=== PATIENT | female | born 1935 | race Two or more races ===

== ENCOUNTER 2017-03-23 10:59 | Inpatient (IN) | payer OTHER ==
[~2017-03-23] VITALS: Ht 165.1 cm; Wt 49.2 kg
[2017-03-23 12:09] LABS: BASE EXCESS 7.3 mEq/L (-3 to +3); CARBOXY HGB 5.8 % (0-5); COMMENTS - BLOOD GASES C+A+; DEVICE NC; METHEMOGLOBIN 2.1 % (0-1.5); O2 FLOW 3 L/MIN; PCO2 62 mm Hg (35-45); PO2 99 mm Hg (80-100); SITE LR; TOTAL RESP RATE 18 resp/min; pH 7.36 (7.35-7.45)
[2017-03-23 13:17] LABS: EOSINOPHIL (%) 0 % (0-5); HEMATOCRIT 49.5 % (36.0-46.0); IMMATURE GRANULOCYTE (%) 0.6 % (0.0-0.7); IMMATURE GRANULOCYTE COUNT 0.1 K/uL; INSTRUMENT ABS NEUTROPHIL CT 10.2 K/uL; LYMPHOCYTE COUNT 0.7 K/uL (1.0-2.8); MCH 28.4 PG (29.0-34.0); MCHC 29.3 G/DL (30.0-36.0); MCV 96.9 FL (83-99); MEAN PLAT.VOLUME 10.5 uM^3 (9.5-12.4); MONOCYTE (%) 7.6 % (3-12); MONOCYTE COUNT 0.9 K/uL (0-0.8); NEUTROPHIL (%) 85.5 % (45-76); NEUTROPHIL COUNT 10.2 K/uL (1.8-6.4); PLATELET COUNT 103 K/uL (156-360); RBC DIS.WIDTH-CV 14.9 % (11.8-14.6); RBC DIS.WIDTH-SD 53.3 % (39-53); RED BLOOD COUNT 5.11 M/uL (3.80-5.20); WHITE BLOOD COUNT 11.9 K/uL (4.1-10.2)
[2017-03-23 13:27] LABS: CHLORIDE 101 mEq/L (99-109); SODIUM 140 mEq/L (136-147)
[2017-03-23 13:28] LABS: GLUCOSE 109 mg/dL (70-99)
[2017-03-23 13:30] LABS: ANION GAP 8 MEQ/L (2-14)
[2017-03-23 13:32] LABS: GFR ESTIMATE (CALCULATED) 56 mL/min/
[2017-03-23 13:33] LABS: UREA NITROGEN (BUN) 29 mg/dL (9-23)
[2017-03-23 13:59] LABS: TROP-I INTERPRETATION NEGATIVE; TROPONIN-I 0.07 ng/mL (0.0-0.30)
[2017-03-23 14:48] LABS: ADD MIUA? YES; BILIRUBIN NEGATIVE; BLOOD LARGE; COLOR BROWN ((YELLOW)); GLUCOSE (STRIP) NEGATIVE; KETONES NEGATIVE; LEUKOCYTES SMALL; NITRITE NEGATIVE; PROTEIN (STRIP) 300; SPECIFIC GRAVITY 1.023 (1.000-1.030); UROBILINOGEN 0.2 MG/DL (0.2-1.0)
[2017-03-23 14:49] LABS: RED BLOOD CELLS TNTC /HPF (0-5)
[2017-03-23 19:40] VITALS: BP 138/72
[2017-03-23 20:24] LABS: TROP-I INTERPRETATION NEGATIVE; TROPONIN-I 0.07 ng/mL (0.0-0.30)
[2017-03-23 21:40] LABS: D-DIMER ELISA 2.87 mg/L FEU (< 0.57); INTER. NORMALIZED RATIO 1.2; PROTHROMBIN TIME 12.3 (9.2-11.2); PTT 27.1 (25-32)
[2017-03-23 23:58] VITALS: BP 126/92
[2017-03-24 03:30] LABS: HEMATOCRIT 49.2 % (36.0-46.0); MCH 28.5 PG (29.0-34.0); MCHC 29.5 G/DL (30.0-36.0); MCV 96.9 FL (83-99); MEAN PLAT.VOLUME 11.1 uM^3 (9.5-12.4); PLATELET COUNT 95 K/uL (156-360); RBC DIS.WIDTH-CV 14.8 % (11.8-14.6); RBC DIS.WIDTH-SD 53.4 % (39-53); RED BLOOD COUNT 5.08 M/uL (3.80-5.20); WHITE BLOOD COUNT 10.6 K/uL (4.1-10.2)
[2017-03-24 03:43] LABS: CHLORIDE 101 mEq/L (99-109); POTASSIUM 4.3 mEq/L (3.7-5.4); SODIUM 141 mEq/L (136-147)
[2017-03-24 03:44] LABS: GLUCOSE 132 mg/dL (70-99)
[2017-03-24 03:46] LABS: ANION GAP 8 MEQ/L (2-14)
[2017-03-24 03:48] LABS: GFR ESTIMATE (CALCULATED) > 59 mL/min/
[2017-03-24 03:49] LABS: UREA NITROGEN (BUN) 28 mg/dL (9-23)
[2017-03-24 03:53] LABS: TROP-I INTERPRETATION NEGATIVE
[2017-03-24 04:13] VITALS: BP 134/62
[2017-03-24 08:20] VITALS: BP 146/72
[2017-03-24 11:54] VITALS: BP 157/68
[2017-03-24 16:11] VITALS: BP 123/67
[2017-03-24 19:52] VITALS: BP 115/55
[2017-03-24 23:41] VITALS: BP 125/56
[2017-03-25 05:05] VITALS: BP 116/56
[2017-03-25 07:40] VITALS: BP 101/56
[2017-03-25 08:52] LABS: TROP-I INTERPRETATION NEGATIVE; TROPONIN-I 0.05 ng/mL (0.0-0.30)
[2017-03-25 16:31] VITALS: BP 106/58
[2017-03-25 19:34] VITALS: BP 114/59; BP 130/57
[2017-03-25 23:42] VITALS: BP 110/63
[2017-03-26 03:26] VITALS: BP 104/55
[2017-03-26 07:26] VITALS: BP 145/68
[2017-03-26 11:05] VITALS: BP 134/63
[2017-03-26 11:05] LABS: HEMATOCRIT 46.9 % (36.0-46.0); MCH 28.9 PG (29.0-34.0); MCHC 29.4 G/DL (30.0-36.0); MCV 98.3 FL (83-99); PLATELET COUNT 113 K/uL (156-360); RBC DIS.WIDTH-CV 14.6 % (11.8-14.6); RBC DIS.WIDTH-SD 53.1 % (39-53); RED BLOOD COUNT 4.77 M/uL (3.80-5.20); WHITE BLOOD COUNT 8.8 K/uL (4.1-10.2)
[2017-03-26 11:22] LABS: ANION GAP 9 MEQ/L (2-14); CHLORIDE 96 MEQ/L (99-109); GFR ESTIMATE (CALCULATED) 38 mL/min/; GLUCOSE 155 mg/dL (70-99); POTASSIUM 4.5 MEQ/L (3.7-5.4); SAMPLE HEMOLYSIS CHECK 0; SAMPLE ICTERIC CHECK 0; SAMPLE LIPEMIA CHECK 0; SODIUM 141 MEQ/L (136-147); UREA NITROGEN (BUN) 42 mg/dL (9-23)
[2017-03-26 15:41] VITALS: BP 137/72
[2017-03-26 20:00] VITALS: BP 142/69
[2017-03-27] VITALS: BP 138/73
[2017-03-27 03:54] VITALS: BP 122/63
[2017-03-27 07:26] VITALS: BP 171/72
[2017-03-27 07:30] LABS: HEMATOCRIT 46.6 % (36.0-46.0); MCH 28.6 PG (29.0-34.0); MCHC 29.6 G/DL (30.0-36.0); MCV 96.5 FL (83-99); MEAN PLAT.VOLUME 11.2 uM^3 (9.5-12.4); PLATELET COUNT 107 K/uL (156-360); RBC DIS.WIDTH-CV 14.1 % (11.8-14.6); RBC DIS.WIDTH-SD 50.4 % (39-53); RED BLOOD COUNT 4.83 M/uL (3.80-5.20); WHITE BLOOD COUNT 9.6 K/uL (4.1-10.2)
[2017-03-27 08:00] LABS: ANION GAP 4 MEQ/L (2-14); CHLORIDE 96 MEQ/L (99-109); GFR ESTIMATE (CALCULATED) > 59 mL/min/; POTASSIUM 4.4 MEQ/L (3.7-5.4); SAMPLE HEMOLYSIS CHECK 0; SAMPLE ICTERIC CHECK 0; SAMPLE LIPEMIA CHECK 0; SODIUM 140 MEQ/L (136-147); UREA NITROGEN (BUN) 40 mg/dL (9-23)
[2017-03-27 08:01] LABS: GLUCOSE 92 mg/dL (70-99)
[2017-03-27 11:28] VITALS: BP 169/73
[2017-03-27 15:59] VITALS: BP 162/75
[2017-03-27 20:00] VITALS: BP 136/66
[2017-03-28] VITALS (7 sets, daily range): BP systolic 135–196; BP diastolic 68–88
[2017-03-28 06:43] LABS: HEMATOCRIT 46.5 % (36.0-46.0); MCH 28.8 PG (29.0-34.0); MCHC 29.2 G/DL (30.0-36.0); MCV 98.3 FL (83-99); MEAN PLAT.VOLUME 10.5 uM^3 (9.5-12.4); PLATELET COUNT 102 K/uL (156-360); RBC DIS.WIDTH-SD 51.4 % (39-53); RED BLOOD COUNT 4.73 M/uL (3.80-5.20); WHITE BLOOD COUNT 9.4 K/uL (4.1-10.2)
[2017-03-28 07:07] LABS: ANION GAP ND MEQ/L (2-14); CHLORIDE 94 MEQ/L (99-109); GFR ESTIMATE (CALCULATED) > 59 mL/min/; GLUCOSE 73 mg/dL (70-99); POTASSIUM 4.4 MEQ/L (3.7-5.4); SAMPLE HEMOLYSIS CHECK 0; SAMPLE ICTERIC CHECK 0; SAMPLE LIPEMIA CHECK 0; SODIUM 140 MEQ/L (136-147); UREA NITROGEN (BUN) 37 mg/dL (9-23)
[2017-03-28 07:27] LABS: CARBON DIOXIDE (BICARBONATE) > 40.0 MEQ/L (20-31)
[2017-03-28 08:00] LABS: BASE EXCESS 15.8 mEq/L (-3 to +3); CARBOXY HGB 2.9 % (0-5); METHEMOGLOBIN 2.3 % (0-1.5); pH 7.39 (7.35-7.45)
[2017-03-28 08:01] LABS: BICARBONATE 44.8 mEq/L (22-26); COMMENTS - BLOOD GASES NEG A+C+; DEVICE NC; O2 FLOW 2 L/MIN; PCO2 74 mm Hg (35-45); PO2 64 mm Hg (80-100); SITE LR; TOTAL RESP RATE 15 resp/min
[2017-03-28 13:35] LABS: BASE EXCESS 12.4 mEq/L (-3 to +3); BICARBONATE 42.1 mEq/L (22-26); CARBOXY HGB 2.9 % (0-5); COMMENTS - BLOOD GASES NEG A+C+; DEVICE NC; METHEMOGLOBIN 2.3 % (0-1.5); O2 FLOW 2 L/MIN; PCO2 78 mm Hg (35-45); PO2 57 mm Hg (80-100); SITE LR; TOTAL RESP RATE 12 resp/min; pH 7.34 (7.35-7.45)
[2017-03-29 03:40] VITALS: BP 161/74
[2017-03-29 07:35] VITALS: BP 155/78
[2017-03-29 07:49] LABS: ANION GAP 7 MEQ/L (2-14); CHLORIDE 90 MEQ/L (99-109); GFR ESTIMATE (CALCULATED) > 59 mL/min/; POTASSIUM 4.9 MEQ/L (3.7-5.4); SAMPLE HEMOLYSIS CHECK 0; SAMPLE ICTERIC CHECK 0; SAMPLE LIPEMIA CHECK 0; SODIUM 135 MEQ/L (136-147); UREA NITROGEN (BUN) 31 mg/dL (9-23)
[2017-03-29 07:50] LABS: GLUCOSE 111 mg/dL (70-99)
[2017-03-29 08:49] LABS: BASE EXCESS 16.7 mEq/L (-3 to +3); BICARBONATE 45.4 mEq/L (22-26); CARBOXY HGB 2.8 % (0-5); METHEMOGLOBIN 2.1 % (0-1.5); PCO2 70 mm Hg (35-45); PO2 67 mm Hg (80-100); pH 7.42 (7.35-7.45)
[2017-03-29 08:50] LABS: COMMENTS - BLOOD GASES NEG A+C+; DEVICE NC; O2 FLOW 3 L/MIN; SITE LR; TOTAL RESP RATE 15 resp/min
[2017-03-29 11:08] VITALS: BP 173/71
[2017-03-29 16:00] VITALS: BP 160/73
[2017-03-29 19:37] VITALS: BP 143/71
[2017-03-29 23:38] VITALS: BP 144/67
[2017-03-30 03:32] VITALS: BP 162/72
[2017-03-30 07:49] VITALS: BP 134/63
[2017-03-30 08:23] LABS: HEMATOCRIT 47.1 % (36.0-46.0); MCH 29.3 PG (29.0-34.0); MCHC 30.8 G/DL (30.0-36.0); MCV 95.2 FL (83-99); MEAN PLAT.VOLUME 10.5 uM^3 (9.5-12.4); PLATELET COUNT 130 K/uL (156-360); RBC DIS.WIDTH-CV 13.2 % (11.8-14.6); RBC DIS.WIDTH-SD 46.5 % (39-53); RED BLOOD COUNT 4.95 M/uL (3.80-5.20); WHITE BLOOD COUNT 11.3 K/uL (4.1-10.2)
[2017-03-30 09:05] LABS: ANION GAP ND MEQ/L (2-14); CHLORIDE 88 MEQ/L (99-109); GFR ESTIMATE (CALCULATED) > 59 mL/min/; GLUCOSE 84 mg/dL (70-99); POTASSIUM 4.9 MEQ/L (3.7-5.4); SAMPLE HEMOLYSIS CHECK 0; SAMPLE ICTERIC CHECK 0; SAMPLE LIPEMIA CHECK 0; SODIUM 136 MEQ/L (136-147); UREA NITROGEN (BUN) 27 mg/dL (9-23)
[2017-03-30 09:08] LABS: CARBON DIOXIDE (BICARBONATE) > 40.0 MEQ/L (20-31)
[2017-03-30] MEDS ORDERED: ELIQUIS5 MG PO ×3 (10:20→11:09)
[2017-03-30] MEDS ORDERED: DUONEB 2.5-0.5 M3 ML AEROSOL (10:20)
[2017-03-30] MEDS ORDERED: CARVEDILOL6.25 MG PO (10:20)
[2017-03-30] MEDS ORDERED: HYDROCHLOROTH12.5 M3 PO (10:21)
[2017-03-30] MEDS ORDERED: VALSARTAN160 MG PO (10:21)
[2017-03-30] MEDS ORDERED: MEDROL DOSEPAK4 MG PO (10:21)
[2017-03-30] MEDS ORDERED: ADVAIR HFA120 INHALA IH (10:21)
[2017-03-30] MEDS ORDERED: BISACODYL5 MG PO (10:21)
[2017-03-30] MEDS ORDERED: ANCEF,KEFZOL1 GM IM (10:24)
[2017-03-30 10:54] VITALS: BP 140/65
== END 2017-03-30 13:05 | DRG 175 ==
LOC: EME 10:59 → 5SOUTH 15:57 → EDOF 15:57 → 5SOUTH 17:42 → 2EAST 03-29 21:46
PROVIDERS: Emergency Medicine; Hospitalist; Internal Medicine; Internal Medicine Cardiovascular Disease; Internal Medicine Pulmonary Disease; Physician Assistant; Physician Assistant Medical
PROC: 0HDNXZZ Extraction of Left Foot Skin, External Approach (ICD-10-PCS; principal; 2017-03-28)
DX: I26.99 Other pulmonary embolism without acute cor pulmonale (principal); J96.01 Acute respiratory failure with hypoxia; J44.1 Chronic obstructive pulmonary disease with (acute) exacerbation; I50.41 Acute combined systolic (congestive) and diastolic (congestive) heart failure; R78.81 Bacteremia; N17.9 Acute kidney failure, unspecified; L03.116 Cellulitis of left lower limb; N39.0 Urinary tract infection, site not specified; R31.29 Other microscopic hematuria; S91.302A Unspecified open wound, left foot, initial encounter; E87.2 Acidosis; I25.10 Atherosclerotic heart disease of native coronary artery without angina pectoris; D69.6 Thrombocytopenia, unspecified; I27.2 Other secondary pulmonary hypertension; I07.1 Rheumatic tricuspid insufficiency; I27.81 Cor pulmonale (chronic); I49.3 Ventricular premature depolarization; N28.9 Disorder of kidney and ureter, unspecified; I70.203 Unspecified atherosclerosis of native arteries of extremities, bilateral legs; I11.0 Hypertensive heart disease with heart failure; R32 Unspecified urinary incontinence; A49.01 Methicillin susceptible Staphylococcus aureus infection, unspecified site; F17.210 Nicotine dependence, cigarettes, uncomplicated
CPT/HCPCS: 36600; 71010; 71275; 74176; 74183; 80048; 81003; 82803; 83605; 83880; 84484; 85025; 85027; 85379; 85610; 85730; 87040; 87070; 87075; 87077; 87186; 87205; 87801; 93005; 93306; 93925; 93970; 93971; 94640; 94640 76; 94644; 94799; 99202; 99281; 99285; J0295; J0690; J0696; J1644; J1650; J1940; J2060; J2920; J2930; J3370; J7030; J7050; J7512

== ENCOUNTER 2017-04-20 11:57 | Emergency (ER) | payer OTHER ==
[~2017-04-20] VITALS: Ht 157.5 cm; Wt 43.4 kg
[~2017-04-20 11:57] MED LIST: ADVAIR HFA120 INHALA IH; ANCEF,KEFZOL1 GM IM; BISACODYL5 MG PO; CARVEDILOL6.25 MG PO; DUONEB 2.5-0.5 M3 ML AEROSOL; ELIQUIS5 MG PO; HYDROCHLOROTH12.5 M3 PO; MEDROL DOSEPAK4 MG PO; VALSARTAN160 MG PO
[2017-04-20 13:45] LABS: EOSINOPHIL (%) 1.9 % (0-5); EOSINOPHIL COUNT 0.1 K/uL (0-0.3); HEMATOCRIT 35.3 % (36.0-46.0); IMMATURE GRANULOCYTE (%) 0.7 % (0.0-0.7); IMMATURE GRANULOCYTE COUNT 0.1 K/uL; LYMPHOCYTE COUNT 0.9 K/uL (1.0-2.8); MCH 28.4 PG (29.0-34.0); MCHC 29.7 G/DL (30.0-36.0); MCV 95.4 FL (83-99); MEAN PLAT.VOLUME 9.8 uM^3 (9.5-12.4); MONOCYTE (%) 12.5 % (3-12); MONOCYTE COUNT 0.9 K/uL (0-0.8); NEUTROPHIL (%) 71.5 % (45-76); PLATELET COUNT 177 K/uL (156-360); RBC DIS.WIDTH-CV 13.2 % (11.8-14.6); RBC DIS.WIDTH-SD 46.4 % (39-53); WHITE BLOOD COUNT 6.9 K/uL (4.1-10.2)
[2017-04-20 13:52] LABS: CHLORIDE 93 mEq/L (99-109); SODIUM 131 mEq/L (136-147)
[2017-04-20 13:53] LABS: PROTHROMBIN TIME 10.2 (9.2-11.2); PTT 20.9 (25-32)
[2017-04-20 13:54] LABS: GLUCOSE 70 mg/dL (70-99)
[2017-04-20 13:55] LABS: ANION GAP 5 MEQ/L (2-14)
[2017-04-20 13:56] LABS: TOTAL BILIRUBIN 0.3 mg/dL (0.0-1.0)
[2017-04-20 13:58] LABS: ALKALINE PHOSPHATASE 84 IU/L (3-129); GFR ESTIMATE (CALCULATED) > 59 mL/min/
[2017-04-20 14:00] LABS: UREA NITROGEN (BUN) 35 mg/dL (9-23)
[2017-04-20 14:04] LABS: TROP-I INTERPRETATION NEGATIVE; TROPONIN-I 0.02 ng/mL (0.0-0.30)
[2017-04-20 14:36] LABS: ADD MIUA? NO; BILIRUBIN NEGATIVE; BLOOD NEGATIVE; COLOR YELLOW ((YELLOW)); GLUCOSE (STRIP) NEGATIVE; KETONES NEGATIVE; LEUKOCYTES NEGATIVE; NITRITE NEGATIVE; PROTEIN (STRIP) NEGATIVE; SPECIFIC GRAVITY 1.004 (1.000-1.030); UCUL ADDED? NO; UROBILINOGEN 0.2 MG/DL (0.2-1.0)
[2017-04-20 16:48] VITALS: BP 125/60
== END 2017-04-20 16:51 | disposition home or self-care (01) ==
LOC: EME → EDBD 11:57 → EME 16:51
PROVIDERS: Emergency Medicine
DX: R53.1 Weakness (principal); I95.9 Hypotension, unspecified; I48.91 Unspecified atrial fibrillation; Z87.440 Personal history of urinary (tract) infections; F17.200 Nicotine dependence, unspecified, uncomplicated
CPT/HCPCS: 71010; 80053; 81003; 83605; 84484; 85025; 85610; 85730; 87040; 93005; 99281; 99285

== ENCOUNTER 2017-06-04 12:13 | Inpatient (IN) | payer OTHER ==
[~2017-06-04] VITALS: Ht 167.6 cm; Wt 42.2 kg
[2017-06-04 13:18] LABS: EOSINOPHIL (%) 2.2 % (0-5); EOSINOPHIL COUNT 0.2 K/uL (0-0.3); HEMATOCRIT 33.4 % (36.0-46.0); IMMATURE GRANULOCYTE (%) 0.4 % (0.0-0.7); INSTRUMENT ABS NEUTROPHIL CT 6.7 K/uL; LYMPHOCYTE COUNT 0.7 K/uL (1.0-2.8); MCH 28.5 PG (29.0-34.0); MCHC 31.7 G/DL (30.0-36.0); MCV 89.8 FL (83-99); MEAN PLAT.VOLUME 8.3 uM^3 (9.5-12.4); MONOCYTE (%) 13.7 % (3-12); MONOCYTE COUNT 1.2 K/uL (0-0.8); NEUTROPHIL (%) 75.3 % (45-76); NEUTROPHIL COUNT 6.7 K/uL (1.8-6.4); PLATELET COUNT 274 K/uL (156-360); RBC DIS.WIDTH-CV 13.1 % (11.8-14.6); RBC DIS.WIDTH-SD 43.2 % (39-53); RED BLOOD COUNT 3.72 M/uL (3.80-5.20); WHITE BLOOD COUNT 8.9 K/uL (4.1-10.2)
[2017-06-04 13:26] LABS: PROTHROMBIN TIME 11.3 SEC (10.2-12.9)
[2017-06-04 13:29] LABS: PTT 29.5 SEC (25-37)
[2017-06-04 13:30] LABS: CHLORIDE 83 mEq/L (99-109); POTASSIUM 4.4 mEq/L (3.7-5.4); SODIUM 124 mEq/L (136-147)
[2017-06-04 13:32] LABS: GLUCOSE 116 mg/dL (70-99)
[2017-06-04 13:33] LABS: ANION GAP 8 MEQ/L (2-14)
[2017-06-04 13:36] LABS: GFR ESTIMATE (CALCULATED) > 59 mL/min/
[2017-06-04 13:37] LABS: UREA NITROGEN (BUN) 12 mg/dL (9-23)
[2017-06-04 13:41] LABS: TROP-I INTERPRETATION NEGATIVE; TROPONIN-I 0.11 ng/mL (0.0-0.30)
[2017-06-04] MEDS ORDERED: ELIQUIS5 MG PO (15:21)
[2017-06-04] MEDS ORDERED: DIOVAN80 MG PO (15:22)
[2017-06-04] MEDS ORDERED: COREG6.25 M1 PO (15:22)
[2017-06-04] MEDS ORDERED: ADVAIR 250/501 DISK IH (15:23)
[2017-06-04] MEDS ORDERED: TYLENOL EXTRA500 MG PO (15:23)
[2017-06-04] MEDS ORDERED: TRAMADOL HCL50 MG PO (15:23)
[2017-06-04] MEDS ORDERED: DULCOLAX5 MG PO (15:24)
[2017-06-04] MEDS ORDERED: ATORVASTATIN CA20 MG PO (15:24)
[2017-06-04] MEDS ORDERED: LASIX20 MG PO (15:25)
[2017-06-04 17:31] VITALS: BP 152/70
[2017-06-04 19:37] LABS: ANION GAP 8 MEQ/L (2-14); CHLORIDE 87 MEQ/L (99-109); GFR ESTIMATE (CALCULATED) > 59 mL/min/; POTASSIUM 4.4 MEQ/L (3.7-5.4); SAMPLE HEMOLYSIS CHECK 0; SAMPLE ICTERIC CHECK 0; SAMPLE LIPEMIA CHECK 0; SODIUM 125 MEQ/L (136-147); UREA NITROGEN (BUN) 10 mg/dL (9-23)
[2017-06-04 20:09] LABS: GLUCOSE 190 mg/dL (70-99)
[2017-06-04 20:12] VITALS: BP 138/86
[2017-06-04 23:52] VITALS: BP 161/70
[2017-06-05 04:00] VITALS: BP 164/52
[2017-06-05 06:52] LABS: ANION GAP 6 MEQ/L (2-14); CHLORIDE 97 MEQ/L (99-109); GFR ESTIMATE (CALCULATED) > 59 mL/min/; GLUCOSE 116 mg/dL (70-99); POTASSIUM 4.2 MEQ/L (3.7-5.4); SAMPLE HEMOLYSIS CHECK 0; SAMPLE ICTERIC CHECK 0; SAMPLE LIPEMIA CHECK 0; SODIUM 131 MEQ/L (136-147); UREA NITROGEN (BUN) 10 mg/dL (9-23)
[2017-06-05 07:05] VITALS: BP 148/78
[2017-06-05 18:26] VITALS: BP 148/67
[2017-06-05 19:17] VITALS: BP 140/72
[2017-06-05 23:39] VITALS: BP 133/67
[2017-06-06 06:50] VITALS: BP 152/67
[2017-06-06 06:54] LABS: EOSINOPHIL (%) 0 % (0-5); HEMATOCRIT 32.7 % (36.0-46.0); IMMATURE GRANULOCYTE (%) 0.6 % (0.0-0.7); IMMATURE GRANULOCYTE COUNT 0.1 K/uL; INSTRUMENT ABS NEUTROPHIL CT 10.6 K/uL; LYMPHOCYTE COUNT 0.8 K/uL (1.0-2.8); MCH 27.9 PG (29.0-34.0); MCHC 30.6 G/DL (30.0-36.0); MCV 91.3 FL (83-99); MEAN PLAT.VOLUME 8.7 uM^3 (9.5-12.4); MONOCYTE (%) 4.5 % (3-12); MONOCYTE COUNT 0.5 K/uL (0-0.8); NEUTROPHIL (%) 88.5 % (45-76); NEUTROPHIL COUNT 10.6 K/uL (1.8-6.4); PLATELET COUNT 341 K/uL (156-360); RBC DIS.WIDTH-CV 13.3 % (11.8-14.6); RBC DIS.WIDTH-SD 44.6 % (39-53); RED BLOOD COUNT 3.58 M/uL (3.80-5.20)
[2017-06-06 07:24] LABS: ALKALINE PHOSPHATASE 81 IU/L (3-129); ANION GAP 4 MEQ/L (2-14); CHLORIDE 93 MEQ/L (99-109); GFR ESTIMATE (CALCULATED) > 59 mL/min/; GLUCOSE 118 mg/dL (70-99); POTASSIUM 4.6 MEQ/L (3.7-5.4); SAMPLE HEMOLYSIS CHECK 0; SAMPLE ICTERIC CHECK 0; SAMPLE LIPEMIA CHECK 0; SODIUM 131 MEQ/L (136-147); TOTAL BILIRUBIN 0.2 MG/DL (0.0-1.0); UREA NITROGEN (BUN) 15 mg/dL (9-23)
[2017-06-06 11:03] LABS: ADD MIUA? YES; BILIRUBIN NEGATIVE; BLOOD NEGATIVE; COLOR YELLOW ((YELLOW)); GLUCOSE (STRIP) NEGATIVE; KETONES NEGATIVE; LEUKOCYTES LARGE; NITRITE NEGATIVE; PROTEIN (STRIP) NEGATIVE; SPECIFIC GRAVITY 1.013 (1.000-1.030); UROBILINOGEN 0.2 MG/DL (0.2-1.0)
[2017-06-06 11:24] LABS: BACTERIA RARE /HPF; EPITHELIAL CELLS RARE /HPF; HYALINE CASTS 0-5 /LPF; MUCUS TRACE /LPF; RED BLOOD CELLS 0-5 /HPF (0-5); UCUL ADDED? YES; WHITE BLOOD CELLS 20-30 /HPF (0-5)
[2017-06-06] MEDS ORDERED: LEVAQUIN500 MG PO (14:06)
[2017-06-06] MEDS ORDERED: PREDNISONE10 MG PO (14:06)
[2017-06-06 14:15] LABS: TROP-I INTERPRETATION NEGATIVE; TROPONIN-I 0.07 ng/mL (0.0-0.30)
== END 2017-06-06 16:06 | disposition home health service (06) | DRG 190 ==
LOC: EME 12:13 → 2EAST 15:13 → EDOF 15:13 → CANRESERV 15:16 → ENRESERV 15:16 → 2EAST 16:55
PROVIDERS: Emergency Medicine; Hospitalist
DX: J44.0 Chronic obstructive pulmonary disease with (acute) lower respiratory infection (principal); J15.9 Unspecified bacterial pneumonia; Y95 Nosocomial condition; J44.1 Chronic obstructive pulmonary disease with (acute) exacerbation; J96.21 Acute and chronic respiratory failure with hypoxia; J84.9 Interstitial pulmonary disease, unspecified; E87.1 Hypo-osmolality and hyponatremia; E86.0 Dehydration; T50.2X5A Adverse effect of carbonic-anhydrase inhibitors, benzothiadiazides and other diuretics, initial encounter; I11.0 Hypertensive heart disease with heart failure; I50.42 Chronic combined systolic (congestive) and diastolic (congestive) heart failure; D64.9 Anemia, unspecified; I27.2 Other secondary pulmonary hypertension; I87.2 Venous insufficiency (chronic) (peripheral); L98.499 Non-pressure chronic ulcer of skin of other sites with unspecified severity; I89.0 Lymphedema, not elsewhere classified; R63.4 Abnormal weight loss; I27.82 Chronic pulmonary embolism; Z79.01 Long term (current) use of anticoagulants; Z87.891 Personal history of nicotine dependence; Z99.81 Dependence on supplemental oxygen; Z68.1 Body mass index [BMI] 19.9 or less, adult
CPT/HCPCS: 71010; 71250; 80048; 80048 91; 80053; 81003; 83935; 84300; 84484; 85025; 85610; 85730; 87077; 87086; 87186; 92610 GN; 93005; 94640; 94640 76; 94760; 94799; 99202; 99281; 99285; J0692; J2920; J7030; J7050; J7512; J7644

== ENCOUNTER 2017-08-08 10:06 | Inpatient (IN) | payer OTHER ==
[~2017-08-08] VITALS: Ht 160 cm; Wt 42.0 kg
[~2017-08-08 10:06] MED LIST changes: +ADVAIR 250/501 DISK IH; +ATORVASTATIN CA20 MG PO; +COREG6.25 M1 PO; +DIOVAN80 MG PO; +DULCOLAX5 MG PO; +LASIX20 MG PO; +LEVAQUIN500 MG PO; +PREDNISONE10 MG PO; +TRAMADOL HCL50 MG PO; +TYLENOL EXTRA500 MG PO
[2017-08-08 10:58] LABS: HEMATOCRIT 28.8 % (36.0-46.0); MCV 90.9 FL (83-99); PLATELET COUNT 192 K/uL (156-360); RBC DIS.WIDTH-CV 12.3 % (11.8-14.6); RBC DIS.WIDTH-SD 41.5 % (39-53); RED BLOOD COUNT 3.17 M/uL (3.80-5.20); WHITE BLOOD COUNT 14.6 K/uL (4.1-10.2)
[2017-08-08 11:10] LABS: CHLORIDE 84 mEq/L (99-109); SODIUM 123 mEq/L (136-147)
[2017-08-08 11:11] LABS: GLUCOSE 182 mg/dL (70-99)
[2017-08-08 11:13] LABS: ANION GAP 10 MEQ/L (2-14)
[2017-08-08 11:15] LABS: GFR ESTIMATE (CALCULATED) > 59 mL/min/
[2017-08-08 11:16] LABS: UREA NITROGEN (BUN) 15 mg/dL (9-23)
[2017-08-08 12:28] LABS: ADD MIUA? YES; BILIRUBIN NEGATIVE; BLOOD SMALL; COLOR YELLOW ((YELLOW)); GLUCOSE (STRIP) NEGATIVE; KETONES NEGATIVE; LEUKOCYTES LARGE; NITRITE NEGATIVE; PROTEIN (STRIP) 30; SPECIFIC GRAVITY 1.011 (1.000-1.030); UROBILINOGEN 0.2 MG/DL (0.2-1.0)
[2017-08-08 12:40] LABS: BACTERIA 3+ /HPF; EPITHELIAL CELLS RARE /HPF; HYALINE CASTS 0-5 /LPF; MUCUS TRACE /LPF; UCUL ADDED? YES; WHITE BLOOD CELLS TNTC /HPF (0-5); WHITE BLOOD CELLS CLUMP FEW /HPF (0-5)
[2017-08-08 12:47] LABS: CREATINE KINASE 118 IU/L (1-294)
[2017-08-08] MEDS ORDERED: LASIX20 MG PO (16:29)
[2017-08-08] MEDS ORDERED: ONE-A-DAY MAXI1 EACH PO (16:30)
[2017-08-08] MEDS ORDERED: PROBIOTIC1 EAC1 PO (16:30)
[2017-08-08] MEDS ORDERED: ASCORBIC ACID500 M3 PO (16:31)
[2017-08-08 17:16] VITALS: BP 149/69
[2017-08-08 19:56] VITALS: BP 162/72
[2017-08-08 23:40] VITALS: BP 160/69
[2017-08-09 03:27] VITALS: BP 163/68
[2017-08-09 06:43] LABS: BASOPHIL COUNT 0.1 K/uL (0-0.1); EOSINOPHIL (%) 3.9 % (0-5); EOSINOPHIL COUNT 0.4 K/uL (0-0.3); HEMATOCRIT 27.8 % (36.0-46.0); IMMATURE GRANULOCYTE (%) 0.5 % (0.0-0.7); IMMATURE GRANULOCYTE COUNT 0.1 K/uL; INSTRUMENT ABS NEUTROPHIL CT 7.9 K/uL; LYMPHOCYTE COUNT 1.2 K/uL (1.0-2.8); MCH 30.9 PG (29.0-34.0); MCHC 33.5 G/DL (30.0-36.0); MCV 92.4 FL (83-99); MEAN PLAT.VOLUME 9.6 uM^3 (9.5-12.4); MONOCYTE (%) 12.3 % (3-12); MONOCYTE COUNT 1.4 K/uL (0-0.8); NEUTROPHIL (%) 71.6 % (45-76); NEUTROPHIL COUNT 7.9 K/uL (1.8-6.4); PLATELET COUNT 221 K/uL (156-360); RBC DIS.WIDTH-CV 12.3 % (11.8-14.6); RBC DIS.WIDTH-SD 41.5 % (39-53); RED BLOOD COUNT 3.01 M/uL (3.80-5.20)
[2017-08-09 07:08] LABS: ANION GAP 5 MEQ/L (2-14); CHLORIDE 89 MEQ/L (99-109); GFR ESTIMATE (CALCULATED) > 59 mL/min/; POTASSIUM 4.2 MEQ/L (3.7-5.4); SAMPLE HEMOLYSIS CHECK 0; SAMPLE ICTERIC CHECK 0; SAMPLE LIPEMIA CHECK 0; SODIUM 124 MEQ/L (136-147); UREA NITROGEN (BUN) 11 mg/dL (9-23)
[2017-08-09 07:09] LABS: GLUCOSE 82 mg/dL (70-99)
[2017-08-09 07:58] LABS: INFLUENZA A VIRAL ANTIGEN NEGATIVE; INFLUENZA B VIRAL ANTIGEN NEGATIVE
[2017-08-09 08:03] LABS: INTERNAL CONTROL VALID? YES
[2017-08-09 08:15] VITALS: BP 159/65
[2017-08-09 12:05] VITALS: BP 146/60
[2017-08-09 13:22] LABS: METH RESISTANT S AUREUS PCR NEGATIVE (NEGATIVE); PROBE CHECK PASS; SPECIMEN PROCESSING CONTROL PASS
[2017-08-09 14:32] LABS: MCV 92.8 FL (83-99)
[2017-08-09 15:09] VITALS: BP 113/51
[2017-08-09 19:35] VITALS: BP 163/71
[2017-08-09 23:46] VITALS: BP 138/58
[2017-08-10 04:41] VITALS: BP 141/60
[2017-08-10 07:01] LABS: HEMATOCRIT 28.1 % (36.0-46.0); MCH 30.9 PG (29.0-34.0); MCHC 33.1 G/DL (30.0-36.0); MCV 93.4 FL (83-99); MEAN PLAT.VOLUME 9.4 uM^3 (9.5-12.4); PLATELET COUNT 240 K/uL (156-360); RBC DIS.WIDTH-CV 12.4 % (11.8-14.6); RBC DIS.WIDTH-SD 42.5 % (39-53); RED BLOOD COUNT 3.01 M/uL (3.80-5.20); WHITE BLOOD COUNT 11.2 K/uL (4.1-10.2)
[2017-08-10 07:15] VITALS: BP 132/54
[2017-08-10 07:29] LABS: ANION GAP 5 MEQ/L (2-14); CHLORIDE 90 MEQ/L (99-109); GFR ESTIMATE (CALCULATED) > 59 mL/min/; GLUCOSE 87 mg/dL (70-99); IRON 39 MCG/DL (35-150); POTASSIUM 4.4 MEQ/L (3.7-5.4); SAMPLE HEMOLYSIS CHECK 0; SAMPLE ICTERIC CHECK 0; SAMPLE LIPEMIA CHECK 0; SODIUM 126 MEQ/L (136-147); UREA NITROGEN (BUN) 9 mg/dL (9-23)
[2017-08-10 08:07] LABS: FERRITIN 251 NG/ML (10-291)
[2017-08-10 11:42] VITALS: BP 132/56
[2017-08-10 20:28] VITALS: BP 137/75
[2017-08-10 23:34] VITALS: BP 125/60
[2017-08-11 04:28] VITALS: BP 137/62
[2017-08-11 08:00] VITALS: BP 149/74
[2017-08-11 08:34] LABS: HEMATOCRIT 27.1 % (36.0-46.0); MCH 30.6 PG (29.0-34.0); MCHC 32.8 G/DL (30.0-36.0); MCV 93.1 FL (83-99); MEAN PLAT.VOLUME 9.1 uM^3 (9.5-12.4); PLATELET COUNT 243 K/uL (156-360); RBC DIS.WIDTH-CV 12.5 % (11.8-14.6); RBC DIS.WIDTH-SD 42.9 % (39-53); RED BLOOD COUNT 2.91 M/uL (3.80-5.20); WHITE BLOOD COUNT 8.7 K/uL (4.1-10.2)
[2017-08-11 09:00] LABS: ANION GAP 6 MEQ/L (2-14); CHLORIDE 91 MEQ/L (99-109); GFR ESTIMATE (CALCULATED) > 59 mL/min/; GLUCOSE 85 mg/dL (70-99); POTASSIUM 4.7 MEQ/L (3.7-5.4); SAMPLE HEMOLYSIS CHECK 0; SAMPLE ICTERIC CHECK 0; SAMPLE LIPEMIA CHECK 0; SODIUM 127 MEQ/L (136-147); UREA NITROGEN (BUN) 11 mg/dL (9-23)
[2017-08-11 11:32] VITALS: BP 152/88
[2017-08-11 15:50] VITALS: BP 139/68
[2017-08-11 19:55] VITALS: BP 137/60
[2017-08-11 23:43] VITALS: BP 133/66
[2017-08-12 03:34] VITALS: BP 120/56
[2017-08-12 08:42] LABS: ANION GAP 8 MEQ/L (2-14); CHLORIDE 93 MEQ/L (99-109); GFR ESTIMATE (CALCULATED) > 59 mL/min/; GLUCOSE 80 mg/dL (70-99); POTASSIUM 4.8 MEQ/L (3.7-5.4); SAMPLE HEMOLYSIS CHECK 0; SAMPLE ICTERIC CHECK 0; SAMPLE LIPEMIA CHECK 0; SODIUM 129 MEQ/L (136-147); UREA NITROGEN (BUN) 11 mg/dL (9-23)
[2017-08-12 09:10] VITALS: BP 132/64
[2017-08-12 11:43] VITALS: BP 128/71
[2017-08-12 16:08] VITALS: BP 138/66
[2017-08-12 19:37] VITALS: BP 147/67
[2017-08-13] VITALS (7 sets, daily range): BP systolic 133–168; BP diastolic 61–81
[2017-08-13 06:27] LABS: HEMATOCRIT 30.2 % (36.0-46.0); MCH 29.6 PG (29.0-34.0); MCHC 32.1 G/DL (30.0-36.0); MCV 92.1 FL (83-99); MEAN PLAT.VOLUME 8.7 uM^3 (9.5-12.4); PLATELET COUNT 296 K/uL (156-360); RBC DIS.WIDTH-CV 12.7 % (11.8-14.6); RBC DIS.WIDTH-SD 42.5 % (39-53); RED BLOOD COUNT 3.28 M/uL (3.80-5.20); WHITE BLOOD COUNT 4.4 K/uL (4.1-10.2)
[2017-08-13 07:00] LABS: ANION GAP 6 MEQ/L (2-14); CHLORIDE 87 MEQ/L (99-109); GFR ESTIMATE (CALCULATED) > 59 mL/min/; POTASSIUM 4.5 MEQ/L (3.7-5.4); SAMPLE HEMOLYSIS CHECK 0; SAMPLE ICTERIC CHECK 0; SAMPLE LIPEMIA CHECK 0; SODIUM 129 MEQ/L (136-147); UREA NITROGEN (BUN) 10 mg/dL (9-23)
[2017-08-13 07:08] LABS: GLUCOSE 142 mg/dL (70-99)
[2017-08-14] VITALS (7 sets, daily range): BP systolic 112–161; BP diastolic 53–70
[2017-08-14 06:00] LABS: HEMATOCRIT 28.7 % (36.0-46.0); MCH 29.9 PG (29.0-34.0); MCHC 31.7 G/DL (30.0-36.0); MCV 94.4 FL (83-99); MEAN PLAT.VOLUME 8.9 uM^3 (9.5-12.4); PLATELET COUNT 311 K/uL (156-360); RBC DIS.WIDTH-CV 13.2 % (11.8-14.6); RBC DIS.WIDTH-SD 44.1 % (39-53); RED BLOOD COUNT 3.04 M/uL (3.80-5.20); WHITE BLOOD COUNT 11.3 K/uL (4.1-10.2)
[2017-08-14 06:25] LABS: ANION GAP 4 MEQ/L (2-14); CHLORIDE 89 MEQ/L (99-109); GFR ESTIMATE (CALCULATED) > 59 mL/min/; GLUCOSE 115 mg/dL (70-99); POTASSIUM 4.5 MEQ/L (3.7-5.4); SAMPLE HEMOLYSIS CHECK 0; SAMPLE ICTERIC CHECK 0; SAMPLE LIPEMIA CHECK 0; SODIUM 132 MEQ/L (136-147); UREA NITROGEN (BUN) 13 mg/dL (9-23)
[2017-08-15 03:45] VITALS: BP 160/69
[2017-08-15 06:22] LABS: HEMATOCRIT 31.5 % (36.0-46.0); MCH 29.4 PG (29.0-34.0); MCHC 30.8 G/DL (30.0-36.0); MCV 95.5 FL (83-99); MEAN PLAT.VOLUME 8.9 uM^3 (9.5-12.4); PLATELET COUNT 318 K/uL (156-360); RBC DIS.WIDTH-CV 13.5 % (11.8-14.6); WHITE BLOOD COUNT 10.8 K/uL (4.1-10.2)
[2017-08-15 06:46] LABS: ANION GAP 6 MEQ/L (2-14); CHLORIDE 89 MEQ/L (99-109); GFR ESTIMATE (CALCULATED) > 59 mL/min/; GLUCOSE 123 mg/dL (70-99); POTASSIUM 4.8 MEQ/L (3.7-5.4); SAMPLE HEMOLYSIS CHECK 0; SAMPLE ICTERIC CHECK 0; SAMPLE LIPEMIA CHECK 0; SODIUM 131 MEQ/L (136-147); UREA NITROGEN (BUN) 21 mg/dL (9-23)
[2017-08-15 07:09] VITALS: BP 168/72
[2017-08-15 11:24] VITALS: BP 138/64
[2017-08-15 11:49] LABS: BASE EXCESS 18.8 mEq/L (-3 to +3); BICARBONATE 45.1 mEq/L (22-26); PCO2 62 mm Hg (35-45); PO2 57 mm Hg (80-100); pH 7.47 (7.35-7.45)
[2017-08-15 11:50] LABS: COMMENTS - BLOOD GASES A+C+; DEVICE HHFNC; FI02 45 %; O2 FLOW 30 L/MIN; SITE LRA; TOTAL RESP RATE 16 resp/min
[2017-08-15 15:42] VITALS: BP 135/58
[2017-08-15 19:50] VITALS: BP 158/69
[2017-08-15 23:19] VITALS: BP 118/57
[2017-08-16] VITALS (7 sets, daily range): BP systolic 114–172; BP diastolic 55–74
[2017-08-16 05:09] LABS: HEMATOCRIT 35.1 % (36.0-46.0); MCH 30.4 PG (29.0-34.0); MCHC 31.9 G/DL (30.0-36.0); MCV 95.1 FL (83-99); MEAN PLAT.VOLUME 8.9 uM^3 (9.5-12.4); PLATELET COUNT 323 K/uL (156-360); RBC DIS.WIDTH-CV 13.3 % (11.8-14.6); RBC DIS.WIDTH-SD 45.5 % (39-53); RED BLOOD COUNT 3.69 M/uL (3.80-5.20); WHITE BLOOD COUNT 11.9 K/uL (4.1-10.2)
[2017-08-16 05:20] LABS: CHLORIDE 86 mEq/L (99-109); POTASSIUM 4.9 mEq/L (3.7-5.4); SODIUM 131 mEq/L (136-147)
[2017-08-16 05:21] LABS: GLUCOSE 119 mg/dL (70-99)
[2017-08-16 05:23] LABS: ANION GAP 7 MEQ/L (2-14)
[2017-08-16 05:25] LABS: GFR ESTIMATE (CALCULATED) > 59 mL/min/
[2017-08-16 05:26] LABS: UREA NITROGEN (BUN) 21 mg/dL (9-23)
[2017-08-16 10:38] LABS: BASE EXCESS 19.1 mEq/L (-3 to +3); BICARBONATE 45.4 mEq/L (22-26); CARBOXY HGB 2.1 % (0-5); METHEMOGLOBIN 1.5 % (0-1.5); PCO2 61 mm Hg (35-45); PO2 63 mm Hg (80-100); SITE LR; pH 7.48 (7.35-7.45)
[2017-08-16 10:39] LABS: COMMENTS - BLOOD GASES A+C+; DEVICE NCHH; FI02 30 %; O2 FLOW 30 L/MIN; TOTAL RESP RATE 18 resp/min
[2017-08-17 00:14] VITALS: BP 148/66
[2017-08-17 04:35] VITALS: BP 160/69
[2017-08-17 06:18] LABS: HEMATOCRIT 33.2 % (36.0-46.0); MCH 29.8 PG (29.0-34.0); MCHC 31.6 G/DL (30.0-36.0); MCV 94.3 FL (83-99); MEAN PLAT.VOLUME 8.9 uM^3 (9.5-12.4); PLATELET COUNT 284 K/uL (156-360); RBC DIS.WIDTH-CV 13.3 % (11.8-14.6); RBC DIS.WIDTH-SD 45.6 % (39-53); RED BLOOD COUNT 3.52 M/uL (3.80-5.20); WHITE BLOOD COUNT 7.7 K/uL (4.1-10.2)
[2017-08-17 06:44] LABS: ANION GAP 6 MEQ/L (2-14); CHLORIDE 89 MEQ/L (99-109); GFR ESTIMATE (CALCULATED) > 59 mL/min/; GLUCOSE 127 mg/dL (70-99); POTASSIUM 4.6 MEQ/L (3.7-5.4); SAMPLE HEMOLYSIS CHECK 0; SAMPLE ICTERIC CHECK 0; SAMPLE LIPEMIA CHECK 0; SODIUM 133 MEQ/L (136-147); UREA NITROGEN (BUN) 21 mg/dL (9-23)
[2017-08-17 07:30] VITALS: BP 159/70
[2017-08-17] MEDS ORDERED: LOVENOX30 MG/0.3 SC (07:39)
[2017-08-17] MEDS ORDERED: AMLODIPINE BESYL5 MG PO (07:40)
[2017-08-17] MEDS ORDERED: SODIUM CHLORIDE1 G1 PO (07:40)
[2017-08-17] MEDS ORDERED: CARVEDILOL6.25 MG PO (07:40)
[2017-08-17] MEDS ORDERED: LEVAQUIN500 MG PO (07:45)
[2017-08-17 11:29] VITALS: BP 133/59
== END 2017-08-17 12:55 | DRG 981 ==
LOC: EME 10:06 → EDOF 14:56 → 5SOUTH 14:56 → ENRESERV 15:01 → 5SOUTH 16:46 → CANRESERV 08-12 06:48 → ENRESERV 08-12 06:48 → 5SOUTH 08-13 18:13 → 3EAST 08-13 20:58
PROVIDERS: Internal Medicine; Nurse Practitioner Adult Health; Orthopaedic Surgery; Physician Assistant; Physician Assistant Medical
PROC: 0QH734Z Insertion of Internal Fixation Device into Left Upper Femur, Percutaneous Approach (ICD-10-PCS; principal; 2017-08-13)
DX: J44.0 Chronic obstructive pulmonary disease with (acute) lower respiratory infection (principal); J18.9 Pneumonia, unspecified organism; J44.1 Chronic obstructive pulmonary disease with (acute) exacerbation; J96.21 Acute and chronic respiratory failure with hypoxia; J96.22 Acute and chronic respiratory failure with hypercapnia; S72.092A Other fracture of head and neck of left femur, initial encounter for closed fracture; N39.0 Urinary tract infection, site not specified; E87.1 Hypo-osmolality and hyponatremia; I27.81 Cor pulmonale (chronic); G93.40 Encephalopathy, unspecified; E46 Unspecified protein-calorie malnutrition; Z68.1 Body mass index [BMI] 19.9 or less, adult; I11.0 Hypertensive heart disease with heart failure; I25.10 Atherosclerotic heart disease of native coronary artery without angina pectoris; I50.32 Chronic diastolic (congestive) heart failure; I27.82 Chronic pulmonary embolism; I27.29 Other secondary pulmonary hypertension; D64.9 Anemia, unspecified; W19.XXXA Unspecified fall, initial encounter; Y92.009 Unspecified place in unspecified non-institutional (private) residence as the place of occurrence of the external cause; I47.1 Supraventricular tachycardia; I73.9 Peripheral vascular disease, unspecified; I50.82 Biventricular heart failure; I74.9 Embolism and thrombosis of unspecified artery; Z53.9 Procedure and treatment not carried out, unspecified reason; M85.80 Other specified disorders of bone density and structure, unspecified site; Y95 Nosocomial condition; B96.89 Other specified bacterial agents as the cause of diseases classified elsewhere; H91.90 Unspecified hearing loss, unspecified ear; H54.8 Legal blindness, as defined in USA; E87.2 Acidosis; E78.5 Hyperlipidemia, unspecified; F03.90 Unspecified dementia, unspecified severity, without behavioral disturbance, psychotic disturbance, mood disturbance, and anxiety; L97.529 Non-pressure chronic ulcer of other part of left foot with unspecified severity; M19.90 Unspecified osteoarthritis, unspecified site; Z87.81 Personal history of (healed) traumatic fracture; Z99.81 Dependence on supplemental oxygen; Z87.891 Personal history of nicotine dependence
CPT/HCPCS: 36600; 70450; 71010; 71020; 71250; 72192; 73501; 73502; 73560; 73630; 73700; 76000; 80048; 81003; 82550; 82607; 82728; 82746; 82803; 83540; 83605; 83880; 83930; 83935; 84300; 84443; 84466; 85014; 85018; 85025; 85027; 87040; 87070; 87077; 87086; 87186; 87205; 87449; 87502; 87641; 93005; 94010; 94640; 94640 76; 94760; 94799; 99202; 99281; 99285; C1713; J0131; J0456; J0690; J0692; J0696; J1650; J1940; J2405; J2920; J2930; J3010; J3370; J7030; J7050

== ENCOUNTER 2017-08-28 20:19 | Emergency (ER) | payer OTHER ==
[~2017-08-28] VITALS: Ht 165.1 cm; Wt 44.9 kg
[~2017-08-28 20:19] MED LIST changes: +AMLODIPINE BESYL5 MG PO; +ASCORBIC ACID500 M3 PO; +LOVENOX30 MG/0.3 SC; +ONE-A-DAY MAXI1 EACH PO; +PROBIOTIC1 EAC1 PO; +SODIUM CHLORIDE1 G1 PO
[2017-08-28 21:44] LABS: HEMATOCRIT 33.7 % (36.0-46.0); MCH 30.2 PG (29.0-34.0); MCHC 31.5 G/DL (30.0-36.0); PLATELET COUNT 225 K/uL (156-360); RBC DIS.WIDTH-CV 13.5 % (11.8-14.6); RBC DIS.WIDTH-SD 47.7 % (39-53); RED BLOOD COUNT 3.51 M/uL (3.80-5.20); WHITE BLOOD COUNT 10.8 K/uL (4.1-10.2)
[2017-08-28 22:03] LABS: CHLORIDE 95 mEq/L (99-109); POTASSIUM 4.5 mEq/L (3.7-5.4); SODIUM 132 mEq/L (136-147)
[2017-08-28 22:07] LABS: ANION GAP 7 MEQ/L (2-14); TOTAL BILIRUBIN 0.3 mg/dL (0.0-1.0)
[2017-08-28 22:09] LABS: ALKALINE PHOSPHATASE 115 IU/L (3-129); GFR ESTIMATE (CALCULATED) > 59 mL/min/
[2017-08-28 22:10] LABS: TROP-I INTERPRETATION NEGATIVE; TROPONIN-I 0.01 ng/mL (0.0-0.30); UREA NITROGEN (BUN) 16 mg/dL (9-23)
[2017-08-28 22:17] LABS: GLUCOSE 107 mg/dL (70-99)
[2017-08-29] VITALS: BP 146/64
== END 2017-08-29 01:43 ==
LOC: EME → EDBD 20:19 → EME 08-29 01:43
PROVIDERS: Emergency Medicine
DX: Z03.89 Encounter for observation for other suspected diseases and conditions ruled out (principal); W18.30XA Fall on same level, unspecified, initial encounter; Y92.129 Unspecified place in nursing home as the place of occurrence of the external cause; I10 Essential (primary) hypertension; J44.9 Chronic obstructive pulmonary disease, unspecified; Z87.891 Personal history of nicotine dependence
CPT/HCPCS: 70450; 73502; 73610; 80053; 84484; 85027; 85610; 85730; 93005; 99281; 99284

== ENCOUNTER 2017-10-08 13:21 | Emergency (ER) | payer OTHER ==
[~2017-10-08] VITALS: Ht 170.2 cm; Wt 42.5 kg
[2017-10-08 14:01] LABS: HEMATOCRIT 29.6 % (36.0-46.0); HEMOGLOBIN 9.6 G/DL (11.9-15.5); MCH 30.1 PG (29.0-34.0); MCHC 32.4 G/DL (30.0-36.0); MCV 92.8 FL (83-99); PLATELET COUNT 278 K/uL (156-360); RBC DIS.WIDTH-CV 12.2 % (11.8-14.6); RBC DIS.WIDTH-SD 41.7 % (39-53); RED BLOOD COUNT 3.19 M/uL (3.80-5.20); WHITE BLOOD COUNT 13.8 K/uL (4.1-10.2)
[2017-10-08 14:24] LABS: CHLORIDE 89 mEq/L (99-109); POTASSIUM 4.1 mEq/L (3.7-5.4); SODIUM 126 mEq/L (136-147)
[2017-10-08 14:26] LABS: GLUCOSE 200 mg/dL (70-99)
[2017-10-08 14:30] LABS: CREATININE 0.6 mg/dL (0.6-1.3); GFR ESTIMATE (CALCULATED) > 59 mL/min/; UREA NITROGEN (BUN) 12 mg/dL (9-23)
[2017-10-08 14:32] LABS: TROP-I INTERPRETATION NEGATIVE; TROPONIN-I 0.11 ng/mL (0.0-0.30)
[2017-10-08] MEDS ORDERED: PREDNISONE20 MG PO (15:30)
[2017-10-08] MEDS ORDERED: ZITHROMAX Z-PA250 MG PO (15:30)
[2017-10-08 15:55] VITALS: BP 132/58
== END 2017-10-08 15:56 | disposition home or self-care (01) ==
LOC: EME 13:21
DX: J18.9 Pneumonia, unspecified organism (principal); J44.0 Chronic obstructive pulmonary disease with (acute) lower respiratory infection; J44.1 Chronic obstructive pulmonary disease with (acute) exacerbation; E87.1 Hypo-osmolality and hyponatremia; E27.8 Other specified disorders of adrenal gland; I11.0 Hypertensive heart disease with heart failure; I50.9 Heart failure, unspecified; Z87.891 Personal history of nicotine dependence; Z99.81 Dependence on supplemental oxygen
CPT/HCPCS: 71020; 80048; 83880; 84484; 85027; 93005; 99281; 99284; J7512

== ENCOUNTER → 2018-03-14 | Outpatient (CLI) | payer MEDICARE ==
[~2018-03-14] MED LIST changes: +PREDNISONE20 MG PO; +ZITHROMAX Z-PA250 MG PO
== END | disposition home or self-care (01) ==
LOC: CDC 16:02
DX: Z01.810 Encounter for preprocedural cardiovascular examination (principal); I70.25 Atherosclerosis of native arteries of other extremities with ulceration; I49.1 Atrial premature depolarization; I51.7 Cardiomegaly; R94.31 Abnormal electrocardiogram [ECG] [EKG]
CPT/HCPCS: 93000